=== PATIENT | male | born 1990 | race Caucasian/White ===

== ENCOUNTER 2020-04-30 09:01 | Emergency (ER) | payer BC, OTHER ==
--- NOTE | 2020-04-30 09:54 | EDM.PDOC ---
ED HPI GENERAL MEDICAL PROBLEM - General Chief Complaint: Laceration Stated Complaint: Finger Laceration Time Seen by Provider: 04/30/20 09:30 - History of Present Illness INITIAL COMMENTS - FREE TEXT/NARRATIVE: laceration proximal right little finger in flexor crease of first IP joint. Tetanus is up to date. No other injuries. No numbness/loss of function noted. - Related Data Allergies Allergy/AdvReac Type Severity Reaction Status Date / Time No Known Allergies Allergy Verified 04/30/20 09:09 Home Meds: Home Meds Escitalopram [Lexapro] 10 mg PO DAILY 04/30/20 [History] Past Medical History - Past Health History Medical/Surgical History: Denies Medical/Surgical History Psychiatric History: Reports: Anxiety, Depression Social & Family History - Tobacco Use Tobacco Use Status *Q: Current Every Day Tobacco User Years of Tobacco use: 15 Packs/Tins Daily: 1 ED ROS GENERAL - Review of Systems Review Of Systems: See Below Skin: Reports: Other (laceration proximal/ventral aspect right 5th finger) ED EXAM, SKIN/RASH Exam: See Below Exam Limited By: No Limitations General Appearance: Alert, WD/WN, No Apparent Distress Eye Exam: Bilateral Eye: EOMI, PERRL Ears: Hearing Grossly Normal Nose: No Blood Throat/Mouth: Normal Lips, Normal Voice, No Airway Compromise Head: Atraumatic, Normocephalic Neck: Supple Respiratory/Chest: No Respiratory Distress Extremities: Normal Range of Motion, Normal Capillary Refill, Other (small laceration noted in crease of ventral aspect proximal right little finger). No: Increased Warmth, Mottled, Pallor, Redness Neurological: Alert, Oriented, Normal Cognition, Normal Gait, No Motor/Sensory Deficits Psychiatric: Normal Affect, Normal Mood Skin: Other (as above) ED SKIN PROCEDURES - Laceration/Wound Repair Right Proximal Ventral Digit - 5th (Baby) Appearance: Subcutaneous, Linear, Clean Anesthetic Type: Local Local Anesthesia - Lidocaine (Xylocaine): 1% Plain Local Anesthetic Volume: 1cc Skin Prep: Providone-Iodine (Betadine) Closed with: Sutures Lac/Wound length In cm: 1.0 Suture Size: 4-0 # of Sutures: 1 Suture Type: Prolene, Mattress Drain Placement: No Sterile Dressing Applied: Nurse Tetanus Status Addressed: Yes Complications: No Course - Vital Signs Last Recorded V/S: Last Vital Signs Temp 36.6 C 01/19/21 09:04 Pulse 100 04/30/20 09:04 Resp 16 04/30/20 09:04 BP 120/86 04/30/20 09:04 Pulse Ox 100 04/30/20 09:04 - Orders/Labs/Meds Meds: Medications Discontinued Medications Generic Name Dose Route Start Last Admin Trade Name Willa PRN Reason Stop Dose Admin Lidocaine HCl 5 ml 04/30/20 09:49 Xylocaine-Mpf 1% INJECT 04/30/20 09:50 ONETIME ONE Neomycin/Polymyxin/Bacitracin 1 each 04/30/20 10:01 04/30/20 10:06 Triple Antibiotic Oint TOP 04/30/20 10:02 1 each ONETIME ONE Administration - Re-Assessments/Exams Free Text/Narrative Re-Assessment/Exam: 04/30/20 10:20 Wound soaked after initial arrival to ER. Cleansed. Laceration repaired. Tetanus up to date. Antibiotic ointment and bandage applied. Wound care reviewed prior to discharge. Departure - Departure Time of Disposition: 10:15 Disposition: Home, Self-Care 01 Condition: Good Clinical Impression: Laceration of hand, right Qualifiers: Encounter type: initial encounter Foreign body presence: without foreign body Qualified Code(s): S61.411A - Laceration without foreign body of right hand, initial encounter - Discharge Information *PRESCRIPTION DRUG MONITORING PROGRAM REVIEWED*: Not Applicable *COPY OF PRESCRIPTION DRUG MONITORING REPORT IN PATIENT ALBA: Not Applicable Instructions: Sutured Wound Care, [id number] Referrals: Lillian Sandoval NP [Primary Care Provider] - Forms: ED Department Discharge Additional Instructions: Keep area clean/dry. Wound care as reviewed. Sutures out in one week. Call our clinic to figure out best time to get them removed. Follow up otherwise as needed if you have any problems such as signs of infection. Sepsis Event Note (ED) - Evaluation Sepsis Screening Result: No Definite Risk - Focused Exam Vital Signs: Vital Signs Temp Pulse Resp BP Pulse Ox 04/30/20 09:04 36.6 C 100 16 120/86 100
[2020-04-30] MEDS: Bacitracin/Neomycin/Polymyxin B Oint 0.9 GM U/D Packet TOP ONE (10:06)
== END 2020-04-30 10:20 | disposition home or self-care (01) ==
LOC: LL.ED 09:01
DX: S61.216A Laceration without foreign body of right little finger without damage to nail, initial encounter (principal); Z72.0 Tobacco use; Z23 Encounter for immunization; W26.8XXA Contact with other sharp object(s), not elsewhere classified, initial encounter; Y92.89 Other specified places as the place of occurrence of the external cause; Y99.0 Civilian activity done for income or pay
CPT/HCPCS: 12001; 90471; 99282; 99282-25; J2001